=== PATIENT | male | born 1945 | race Caucasian/White ===

== ENCOUNTER 2022-06-09 19:35 | Emergency (ER) | payer MEDICARE ==
[2022-06-09 20:19] VITALS: RESP 18
--- NOTE | 2022-06-09 21:27 | XR ---
EXAMINATION TYPE: XR chest 1V portable DATE OF EXAM: 06/09/2022 8:47 PM COMPARISON: None TECHNIQUE: XR chest 1V portable Frontal view of the chest. CLINICAL INDICATION:Male, 76 years old with history of cough; FINDINGS: Lungs/Pleura: There is no evidence of pleural effusion, focal consolidation, or pneumothorax. Right lower lung 6 mm and 9 mm nodular densities. Pulmonary vascularity: Unremarkable. Heart/mediastinum: Unremarkable. Musculoskeletal: Multiple level degenerative disc disease changes seen throughout the spine. Midline sternotomy wires are noted and stable. IMPRESSION: No acute cardiopulmonary disease/process. Right lower lung 6 mm 9 mm nodular densities. Further evaluation with nonemergent CT chest is recomme nded.
[2022-06-09] MEDS ORDERED: BEBTELOVIMAB (EUA) 175 MG/2 ML VIAL IV ONE (21:45)
--- NOTE | 2022-06-09 21:51 | ED ---
General Adult HPI - General Chief complaint: Upper Respiratory Infection Stated complaint: covid + Time Seen by Provider: 06/09/22 20:03 Source: patient, family, RN notes reviewed, old records reviewed Mode of arrival: ambulatory Limitations: no limitations - History of Present Illness Initial comments: Patient is a 76-year-old male with past medical history remarkable for heart failure, A. fib, heart bypass, skipped beats in his heart, presents emergency department over concern for COVID-19 infection. Presents emergency Department after his tested positive for Covid today. He would like medical antibodies if he does positive today. Denies any fevers. Does endorse fatigue. Denies chest pain. Denies any abdominal pain, nausea, vomiting. His no other acute complaints at this time. Denies any chest pain. Does have a pulse oximeter at home and saw that is action activation was 94%. He knows he has a poor ejection fraction. Is visiting from out of town and is returning to [place] later this week. Reasons for medical antibodies and COVID-19 infection. Does endorse a productive cough but no shortness of breath. No history of COPD or asthma. - Related Data Allergies Allergy/AdvReac Type Severity Reaction Status Date / Time No Known Allergies Allergy Verified 06/09/22 19:43 Review of Systems ROS Statement: Those systems with pertinent positive or pertinent negative responses have been documented in the HPI. Review of Systems: CONST: Denies fever EYES: Denies blurry vision ENT: Denies nasal congestion C/V: Denies Chest pain RESP: Endorses cough GI: Denies abdominal pain : Denies dysuria SKIN: Denies rash. MSK: Denies joint pain. NEURO: Denies headache ROS Other: All systems not noted in ROS Statement are negative. Past Medical History Past Medical History: Atrial Fibrillation, Heart Failure Additional Past Medical History / Comment(s): low ejection fraction, History of Any Multi-Drug Resistant Organisms: None Reported Past Surgical History: Coronary Bypass/CABG, Heart Catheterization With Stent Past Psychological History: No Psychological Hx Reported Smoking Status: Never smoker Past Alcohol Use History: Occasional Past Drug Use History: None Reported General Exam - General Exam Comments Initial Comments: General: Appears in no acute distress. HEAD: Normal with no signs of head trauma. EYES: EOMI ENT: Hearing grossly intact, normal oropharynx. RESPIRATORY: Clear breath sounds bilaterally. No respiratory distress. No hypoxia. C/V: Regular rate and rhythm. S1 and S2 auscultated, no edema, peripheral pulses 2+ and intact throughout ABD: Abdomen is soft. EXT: No obvious deformity. SKIN: No rashes or lesions observed on exposed skin. NEURO: Alert and oriented 4. Limitations: no limitations Course Vital Signs 06/09/22 06/09/22 19:37 20:15 Temperature 98.8 F Pulse Rate 89 Respiratory 22 18 Rate Blood Pressure 134/79 O2 Sat by Pulse 96 Oximetry Medical Decision Making - Medical Decision Making Based on patient's presentation and physical exam, I'm concerned for COVID-19 infection. Home test is positive but we will repeat a test here as well as a chest x-ray. He was in agreement this plan. Vital signs within normal limits. No respiratory distress. No hypoxia. COVID 19 test is positive. We discussed monoclonal antibody therapy and he consented to treatment. We'll be administered at an discharged home 1 hour afterwards. Chest x-ray showed no acute cardiopulmonary process except for 2 lung nodules located in the right lobe. I did inform the patient his chest x- ray findings. I recommended that he follow-up with his PCP and obtain repeat imaging in approximately 3 months. Patient was in agreement this plan. He will be given information and his discharge paperwork. We discussed quarantine. Patient already owns pulse oximeter. Patient be discharged home at this time. He was in agreement this plan. I instructed the patient to follow up with their PCP in the next 1-3 days. I explained that the patient should return to the emergency department if they experience any worsening symptoms. Strict return precautions were discussed with the patient. The patient expressed understanding of these instructions. I answered all questions that the patient had. The patient was discharged home in good condition with their prescriptions and follow up information. - Lab Data Lab Results 06/09/22 Range/Units 20:38 Coronavirus (PCR) Detected A (Not Detectd) Disposition Clinical Impression: COVID-19 virus infection, Lung nodules Disposition: HOME SELF-CARE Condition: Good Instructions (If sedation given, give patient instructions): Pulmonary Nodules (ED), COVID-19 (Coronavirus Disease 2019) (ED) Additional Instructions: Follow up with your PCP in [place] for further evaluation and imaging of the pulmonary nodules located in your right lung. Is patient prescribed a controlled substance at d/c from ED?: No Referrals: Nonstaff,Physician [Primary Care Provider] - 1-2 days Time of Disposition: 21:30
[2022-06-09 23:04] VITALS: BP 119/88; PULSE 85; TEMP 98.7
== END 2022-06-09 23:04 | disposition home or self-care (01) ==
LOC: EC 19:35
DX: U07.1 COVID-19 (principal); R91.8 Other nonspecific abnormal finding of lung field; I48.91 Unspecified atrial fibrillation; I50.9 Heart failure, unspecified; Z72.89 Other problems related to lifestyle
CPT/HCPCS: 99283; 87635; 71045; Q0222

== ENCOUNTER → 2022-06-09 | Outpatient (CLI) | payer MEDICARE ==
[2022-06-09 15:03] LABS: HCT 49.3 % (39.6-50.0); MCH 28.7 pg (27.0-32.0); MCHC 32.5 g/dL (32.0-37.0); MCV 88.4 fL (80.0-97.0); Mean Platelet Volume 10.9 fL (9.5-12.2); NRBC Per 100 WBC 0 /100 WBCS (0.0-0.0); Platelet Count 169 X 10*3/uL (140-440); RBC 5.58 X 10*6/uL (4.40-5.60); RDW 12.5 % (11.5-14.5); WBC 9.47 X 10*3/uL (4.50-10.00)
[2022-06-09 15:17] LABS: African American GFR (CKD) 54.7 (60.0-200.0); Albumin 4.3 g/dL (3.8-4.9); Albumin/Globulin Ratio 1.54 (1.60-3.17); Anion Gap 14.5 mmol/L (10.00-18.00); BUN/Creat Ratio 13.61 Ratio (12.00-20.00); Blood Urea Nitrogen 19.6 mg/dL (9.0-27.0); Calcium 9.6 mg/dL (8.7-10.3); Carbon Dioxide 24.3 mmol/L (20.0-27.5); Globulin 2.8 g/dL (1.6-3.3); Magnesium 2.1 mg/dL (1.5-2.4); Non-African American GFR(CKD) 47.2 (60.0-200.0); Potassium 3.5 mmol/L (3.5-5.5); Total Bilirubin 0.8 mg/dL (0.30-1.20); Total Protein 7.1 g/dL (6.2-8.2)
== END | disposition home or self-care (01) ==
LOC: LABWHC1 10:01
PROVIDERS: ATTEND Nuclear Medicine Nuclear Cardiology
DX: I25.10 Atherosclerotic heart disease of native coronary artery without angina pectoris (principal); I50.9 Heart failure, unspecified
CPT/HCPCS: 36415; 80053; 83735; 83880; 85027